=== PATIENT | male | born 1990 | race African-American/Black ===

== ENCOUNTER 2019-04-27 18:56 | Emergency (ER) | payer OTHER ==
[~2019-04-27] VITALS: Ht 182.9 cm; Wt 99.8 kg
== END 2019-04-27 21:24 | disposition home or self-care (01) ==
LOC: ER 18:56
DX: S40.011A Contusion of right shoulder, initial encounter (principal); W18.39XA Other fall on same level, initial encounter; Y93.89 Activity, other specified; Y92.89 Other specified places as the place of occurrence of the external cause; Y99.8 Other external cause status